=== PATIENT | female | born 1970 | race Caucasian/White ===

== ENCOUNTER → 2017-05-09 | Day surgery (SDC) | payer BC, OTHER ==
[2017-05-01 15:06] VITALS: BMI 36.0
[~2017-05-09] VITALS: Ht 180.3 cm; Wt 118.2 kg
[~2017-05-09] MED LIST: ASPI81TA28 PO; CHOL1000 PO; GARC1TAB PO; GLUCTAB7 PO; LIDOCAINE HCL 2% 2 ML VIAL (20MG/ML) ONE; MULT-506 PO; PRLSR20 PO; PROPOFOL IV EMULSION 10 MG/ML 20 ML VIAL IV ONE; RANI150T3 PO
[2017-05-09 15:07] VITALS: Ht 180.3 cm; Wt 118.2 kg
--- NOTE | 2017-05-09 16:01 | Endo History and Physical ---
History & Physical Date of Service: May 09, 2017. Chief Complaint: GERD [id number] Referring Physician: MARLO US History of Present Illness 46 yo CF who presents for EGD secondary to GERD and Esophagitis. Past Surgical History Hx Cardiac Surgery: No Hx Internal Defibrillator: No Hx Pacemaker: No Hx Abdominal Surgery: Yes (TUBAL LIGATION, UTERINE CAUTERIZATION) Hx of Implantable Prosthesis: No Hx Post-Op Nausea and Vomiting: No Hx Cancer Surgery: No Hx Thoracic Surgery: No Hx Orthopedic: No Hx Urinary Tract Surgery: No Family History Esophogeal CA Social History Smoking Status: Current Every Day Smoker Hx Substance Use: No Hx Alcohol Use: Yes (1 DRINK/DAY) Allergies Coded Allergies: Tetanus Toxoid (Verified Allergy, Unknown, HAPPENED A CHILD - UNKNOWN REACTION, 05/09/17) Current Medications Reported Home Medications Medications Dose Route/Sig Max Daily Dose Days Date Category Glucosamine Chondroitin (Kzwcvrqeomz-Kbvuapkypgc-Kub C-) 1 Tab Tab 1 Tab PO DAILY 05/01/17 Reported Garcinia Cambogia (Garcinia Cambogia-Chromium) 1 Tab Tab 1 Tab PO DAILY 05/01/17 Reported Vitamin D3 (Cholecalciferol) 1,000 Unit Tab 1 Tab PO DAILY 05/01/17 Reported Multivitamin (Multivitamins) Tab 1 Tab PO DAILY 05/01/17 Reported Aspirin Ec (Aspirin) 81 Mg Tab 81 Mg PO DAILY 05/01/17 Reported Zantac (Ranitidine HCl) 150 Mg Tab 150 Mg PO HS 05/01/17 Reported Prilosec (Omeprazole) 20 Mg Capcr 20 Mg PO QAM 05/01/17 Reported Vital Signs Weight (Kilograms): 118.18 Height (Feet): 5 Height (Inches): 11 Date Time Temp Pulse Resp B/P (MAP) Pulse Ox O2 Delivery O2 Flow Rate FiO2 05/09/17 15:17 36.8 76 18 149/78 (101) 96 Room Air Physical Exam General Appearance: WD/WN, no apparent distress Respiratory/Chest: Auscultation: breath sounds normal Cardiovascular: Heart Auscultation: RRR Abdomen: Bowel Sounds: normal Inspection & Palpation: soft, non-distended, no tenderness, guarding & rebound Assessment and Plan Assessment: 46 yo CF who presents for EGD secondary to GERD and Esophagitis. Plan: Proceed with colonoscopy.
--- NOTE | 2017-05-09 16:17 | Discharge Instructions ---
Endoscopy Patient Instructions Date / Procedure(s) Performed May 09, 2017. EGD Allergy Information Coded Allergies: Tetanus Toxoid (Verified Allergy, Unknown, HAPPENED A CHILD - UNKNOWN REACTION, 05/09/17) Discharge Date / Findings May 09, 2017. Normal EGD Medication Instructions OK to resume all medications today as prescribed Reported Home Medications Medications Dose Route/Sig Max Daily Dose Days Date Category Glucosamine Chondroitin (Jmwcrzsohbc-Tzuhrmqjyfd-Vph C-) 1 Tab Tab 1 Tab PO DAILY 05/01/17 Reported Garcinia Cambogia (Garcinia Cambogia-Chromium) 1 Tab Tab 1 Tab PO DAILY 05/01/17 Reported Vitamin D3 (Cholecalciferol) 1,000 Unit Tab 1 Tab PO DAILY 05/01/17 Reported Multivitamin (Multivitamins) Tab 1 Tab PO DAILY 05/01/17 Reported Aspirin Ec (Aspirin) 81 Mg Tab 81 Mg PO DAILY 05/01/17 Reported Zantac (Ranitidine HCl) 150 Mg Tab 150 Mg PO HS 05/01/17 Reported Prilosec (Omeprazole) 20 Mg Capcr 20 Mg PO QAM 05/01/17 Reported Provider Instructions Activity Restrictions - No exercising or heavy lifting for 24 hours. - Do not drink alcohol the day of the procedure. - Do not drive a car or operate machinery until the day after the procedure. - Do not make any important decisions or sign important papers in 24 hours after the procedure. Following Day: - Return to full activity which may include returning to work/school. Diet Start your diet with liquids and light foods (jello, soup, juice, toast). Then eat your usual diet if not nauseated. Treatment For Common After Affects For mild abdominal pain, bloating, or excessive gas: - Rest - Eat lightly - Lie on right side Follow-Up Information Follow-up with MARLO US as scheduled Anesthesia Information What You Should Know You have had a procedure that required some medicine to reduce anxiety and discomfort. This treatment is called moderate sedation. After receiving the treatment, you may be sleepy, but you will be able to breathe on your own. The effects of the treatment may last for several hours. Follow these instructions along with Activity/Diet recommendations noted above: * Do NOT do anything where dizziness or clumsiness would be dangerous. * Rest quietly at home today, then you can be up and about tomorrow. * Have a responsible person stay with you the rest of today. * You may have had an I.V. today. If so, you may take the dressing off later today. Recommendations Call your doctor if: * Trouble breathing * Continuous vomiting for more than 24 hours * Temperature above 101 degrees * Severe abdominal pain or bloating * Pain not relieved by pain medicine ordered * There is increased drainage or redness from any incision * A large amount of rectal bleeding greater than 2-3 tablespoons. (If you had a polyp/s removed or have hemorrhoids, a small amount of blood - from the rectum is to be expected.) * You have any unanswered questions or concerns. IN THE EVENT OF A SERIOUS EMERGENCY, GO TO THE NEAREST EMERGENCY ROOM Your discharge instructions were prepared by provider Malcolm Lundberg. Patient Instructions Signature Page Yenny Vargas Patient (or Guardian) Signature/Date: I have read and understand the instructions given to me by my caregivers. Caregiver/RN/Doctor Signature/Date: The above-named patient and/or guardian has received patient instructions on this date. + Original Patient Signature Page (only) stays with chart. Please make copy for patient.
--- NOTE | 2017-05-09 16:36 | Anesthesiology Progress Note ---
Anesthesia Post Op Note Date & Time May 09, 2017 at 16:36 Vital Signs Pain Intensity: 0 Vital Signs Past 12 Hours Date Time Temp Pulse Resp B/P (MAP) Pulse Ox O2 Delivery O2 Flow Rate FiO2 05/09/17 16:20 76 18 115/61 (79) 95 Room Air 05/09/17 15:17 36.8 76 18 149/78 (101) 96 Room Air Notes Mental Status: alert / awake / arousable, participated in evaluation Pt Amnestic to Procedure: Yes Nausea / Vomiting: adequately controlled Pain: adequately controlled Airway Patency, RR, SpO2: stable & adequate BP & HR: stable & adequate Hydration State: stable & adequate Anesthetic Complications: no major complications apparent
[2017-05-09 16:50] VITALS: BP 138/89; PULSE 72; O2SAT 96
--- NOTE | 2017-05-09 20:25 | GI REPORT ---
Procedure Date: 05/09/2017 3:35 PM Procedure: Upper GI endoscopy Indications: Gastro-esophageal reflux disease Medicines: Monitored Anesthesia Care Complications: No immediate complications. Estimated Blood Loss: Estimated blood loss: none. Procedure: Pre-Anesthesia Assessment: - Prior to the procedure, a History and Physical was performed, and patient medications and allergies were reviewed. The patient's tolerance of previous anesthesia was also reviewed. The risks and benefits of the procedure and the sedation options and risks were discussed with the patient. All questions were answered, and informed consent was obtained. Prior Anticoagulants: The patient has taken aspirin, last dose was 1 day prior to procedure. ASA Grade Assessment: II - A patient with mild systemic disease. After reviewing the risks and benefits, the patient was deemed in satisfactory condition to undergo the procedure. After obtaining informed consent, the endoscope was passed under direct vision. Throughout the procedure, the patient's blood pressure, pulse, and oxygen saturations were monitored continuously. The scope was introduced through the mouth, and advanced to the second part of duodenum. The upper GI endoscopy was accomplished without difficulty. The patient tolerated the procedure well. Findings: The esophagus was normal. The stomach was normal. The examined duodenum was normal. Impression: - Normal esophagus. - Normal stomach. - Normal examined duodenum. - No specimens collected. Recommendation: - Resume previous diet. - Continue present medications. - Await pathology results. - Return to primary care physician as previously scheduled. Malcolm Lundberg DO 05/09/2017 4:18:47 PM This report has been signed electronically. Note Initiated On: 05/09/2017 3:35 PM I attest to the content of the Intraoperative Record and orders documented therein, exceptions below
== END | disposition home or self-care (01) ==
LOC: C.GI 14:15
PROVIDERS: ATTEND Internal Medicine
DX: K21.9 Gastro-esophageal reflux disease without esophagitis (principal); K20.9 Esophagitis, unspecified; Z98.51 Tubal ligation status; F17.200 Nicotine dependence, unspecified, uncomplicated; Z80.0 Family history of malignant neoplasm of digestive organs; Z79.82 Long term (current) use of aspirin; Z90.89 Acquired absence of other organs; E66.9 Obesity, unspecified

== ENCOUNTER → 2017-07-31 | Outpatient (CLI) | payer OTHER ==
[~2017-07-31] MED LIST changes: -LIDOCAINE HCL 2% 2 ML VIAL (20MG/ML) ONE; -PROPOFOL IV EMULSION 10 MG/ML 20 ML VIAL IV ONE
--- NOTE | 2017-07-31 11:22 | DIAGNOSTIC IMAGING REPORT ---
CHEST 2 VIEWS ROUTINE CLINICAL HISTORY: Right sided chest pain. COMPARISON STUDY: None. FINDINGS: Lung volumes are normal. No pneumothorax or pleural effusion is noted. There is no consolidation to suggest pneumonia. There is no evidence for pulmonary edema. Cardiomediastinal silhouette is unremarkable. IMPRESSION: No acute cardiopulmonary findings. Electronically signed by: Jesús Jimenez M.D. 07/31/2017 11:20 AM Dictated Date/Time: 07/31/2017 11:19 AM
--- NOTE | 2017-07-31 12:01 | DIAGNOSTIC IMAGING REPORT ---
R EXTREMITY NONVASCULAR LIMITED CLINICAL HISTORY: D17.1 Lipoma of back thoracic [id number]. Right upper back lump. COMPARISON STUDY: None. FINDINGS: Within the right upper back at the patient's area of interest there is a 6.2 x 5.2 x 3.0 cm hypoechoic oval-shaped lesion. This demonstrates similar echogenicity within the adjacent subcutaneous fat and therefore likely represents a subcutaneous lipoma. IMPRESSION: A 6.2 x 5.2 x 3.0 cm hypoechoic lesion within the subcutaneous fat of the right upper back. This likely represents a lipoma. However, if this is increasing in size or is painful then surgical excision should be performed. Electronically signed by: Dain Brothers M.D. 07/31/2017 11:59 AM Dictated Date/Time: 07/31/2017 11:57 AM
== END | disposition home or self-care (01) ==
LOC: C.ULTR 10:50
PROVIDERS: ATTEND Nurse Practitioner Adult Health
DX: D17.1 Benign lipomatous neoplasm of skin and subcutaneous tissue of trunk (principal); R07.9 Chest pain, unspecified

== ENCOUNTER → 2017-08-21 | Outpatient (CLI) | payer OTHER ==
--- NOTE | 2017-08-22 14:01 | MAMMOGRAPHY REPORT ---
BILATERAL DIGITAL SCREENING MAMMOGRAM TOMOSYNTHESIS WITH CAD: 08/21/2017 CLINICAL HISTORY: Routine screening. Patient has no complaints. TECHNIQUE: Breast tomosynthesis in addition to standard 2D mammography was performed. Current study was also evaluated with a Computer Aided Detection (CAD) system. COMPARISON: Comparison is made to exams dated: 10/25/2015 mammogram and 05/05/2010 mammogram - [facility]. BREAST COMPOSITION: There are scattered areas of fibroglandular density in both breasts. FINDINGS: No suspicious mass, developing asymmetry, focal area of architectural distortion or cluste r of microcalcifications is seen. IMPRESSION: ACR BI-RADS CATEGORY 1: NEGATIVE There is no mammographic evidence of malignancy. A 1 year screening mammogram is recommended. The pa tient will receive written notification of the results. Approximately 10% of breast cancers are not detected with mammography. A negative mammographic report should not delay biopsy if a clinically suggestive mass is present. Anna Marie Patel M.D. ay/:08/21/2017 16:55:57 [employer] Assistant: Radha Coley RT(R)(M)(BD), [facility] letter sent: Normal 1/2 BI-RADS Code: ACR BI-RADS Category 1: Negative
== END | disposition home or self-care (01) ==
LOC: C.MAMM 15:12
PROVIDERS: ATTEND Nurse Practitioner Adult Health
DX: Z12.31 Encounter for screening mammogram for malignant neoplasm of breast (principal)

== ENCOUNTER → 2017-10-12 | Day surgery (SDC) | payer OTHER ==
[2017-10-05 15:05] VITALS: Ht 179.1 cm; Wt 120.5 kg
[~2017-10-12] VITALS: Ht 179.1 cm; Wt 120.5 kg
[~2017-10-12] MED LIST changes: +ATOR-22 PO; +ATROPINE SULFATE 0.1 MG/ML 5ML SYR IV PRN; +BACITRACIN OINT 15 GM TUBE ONE; +BUPIVACAINE 0.5 % 5 MG/1 ML MPF 30ML VIAL ONE; +CEFAZOLIN 3000MG IV PUSH 22.5 ML IV SCH; +EpHEDrine SULFATE INJ 50 MG/ML AMP IV PRN; +FENTANYL CITRATE INJ 50 MCG/1 ML 2 ML VIAL IV PRN; +FENTANYL CITRATE INJ 50 MCG/1 ML 2 ML VIAL ONE; +HYDR25TA4 PO; +HYDROCODONE/ACETAMIN 5/325MG TAB PO PRN; +LACTATED RINGER'S 1000ML 1,000 ML IV SCH; +LIDOCAINE HCL 2% 2 ML VIAL (20MG/ML) ONE; +LIDOCAINE/EPINEPHRINE 1% 20 ML VIAL ONE; +MIDAZOLAM HCL 1 MG/ML 2ML VIAL ONE; +MoRPHine SULFATE 2 MG/ML CARP IV PRN; +ONDANSETRON INJ 2 MG/ML 2 ML VIAL IV PRN; +PROPOFOL IV EMULSION 10 MG/ML 20 ML VIAL IV ONE
--- NOTE | 2017-10-12 09:11 | History & Physical Bridge - SC ---
H&P Re-Evaluation Bridge Note: I have examined the patient, reviewed the History & Physical and in the interval since the performance of the History & Physical I have noted the following changes of clinical significance: No changes noted
--- NOTE | 2017-10-12 10:01 | [facility] Post Operative Brief Note ---
Immediate Operative Summary Operative Date Oct 12, 2017. Pre-Operative Diagnosis Lipoma of back Post-Operative Diagnosis Same as pre-op Procedure(s) Performed Back Mass/Lipoma Excision Surgeon Pc Maintenance Technician Surgeon(s) Jaja Whitney Estimated Blood Loss 2ML Findings Consistent with Post-Op Diagnosis 6 cm lipoma removed in pieces. Extensions into fascia Specimens A.Back lipoma Drains None Anesthesia Type MAC Complication(s) none Disposition Accompanied Pt To Recovery: no Disposition: Recovery Room / PACU
--- NOTE | 2017-10-12 10:04 | [facility] Operative Report ---
Operative Report Operative Date Oct 12, 2017. Pre-Operative Diagnosis Lipoma of back Post-Operative Diagnosis Same as pre-op Procedure(s) Performed Back Mass/Lipoma Excision Surgeon Buffing And Polishing Wheel Repairer Surgeon(s) Jaja Whitney Estimated Blood Loss 2ML Findings 6 cm lipoma removed in pieces. Extensions into fascia Specimens A.Back lipoma Drains None Anesthesia Type MAC Complication(s) none Disposition no Recovery Room / PACU Indications 47-year-old female with symptomatic back mass, likely lipoma based on physical exam and imaging, plan for excision of soft tissue mass of back. The risks of the procedure were discussed, all questions were answered, and the patient agreed to proceed with surgery as planned. Description of Procedure The patient was properly identified, consented, and taken to the operating room where she was placed in the lateral decubitus position with the left side down. Monitored anesthesia care was induced. SCDs and a safety belt were placed. Preoperative antibiotics were administered. The patient's back was prepped and draped in the standard sterile fashion. Surgical timeout was performed and all parties were in agreement that this was the correct patient and procedure to be performed and we continued as planned. Local anesthetic was injected along the skin incision. A transverse incision was made overlying the mass and deepened down through the subcutaneous tissue with electrocautery. The lipoma was circumferentially dissected, excised in pieces, and passed off the table as specimen. It was approximately 6 cm in size and had some extensions that were deep to the fascia. The wound was irrigated and hemostasis was confirmed. The skin was closed with interrupted 3- 0 Vicryl deep dermal sutures, followed by 4-0 Monocryl running subcuticular suture. Dermabond was placed over the wound. The patient was extubated in the operating room and taken to the PACU where she recovered without apparent incident. All sponge, instrument and needle counts were correct at the conclusion of the procedure. The patient tolerated the procedure well. The physician's mailing machine assistant was present and scrubbed for the entirety of the case. He was critical in positioning the patient, prepping and draping, retraction and exposure, excision of the mass, closure of the incision, and placement of dressings. I attest to the content of the Intraoperative Record and any orders documented therein. Any exceptions are noted below.
[2017-10-12 10:16] VITALS: TEMP 36.3
--- NOTE | 2017-10-12 10:18 | Discharge Instructions ---
Discharge Instructions Date of Service Oct 12, 2017. Visit Reason for Visit: Lipoma Of Back Discharge Discharge Diagnosis / Problem: excision of lipoma Discharge Goals Goal(s): Decrease discomfort Medications Stopped Medications Name(s): Aspirin 81mg stopped Sunday10/06/17 Activity Recommendations Activity Limitations: resume your previous activity Driving or Machine Use: no limitations Anesthesia . Post Anesthesia Instructions: If you have had General Anesthesia or IV Sedation: * Do not drive today. * Resume driving when surgeon permits. * Do not make important decisions or sign legal documents today. * Call surgeon for: 1. Temperature elevations greater than 101 degrees F. 2. Uncontrollable pain. 3. Excessive bleeding. 4. Persistent nausea and vomiting. 5. Medication intolerance (nausea, vomiting or rash). * For nausea and vomiting use only clear liquids such as: tea, soda, bouillon until nausea subsides, then gradually increase diet as tolerated. * If you have any concerns or questions, call your surgeon's office. If physician is unavailable and it is an emergency, call 911 or go to the nearest emergency room. . Instructions / Follow-Up Instructions / Follow-Up Dr. Dowd in 1-2 weeks as planned or call [phone] if you do not already have an appt or have any questions You may take ibuprofen 600 mg every 6 hours as needed for pain or Tylenol OTC as directed Diet Recommendations Recommended Home Diet: no limitations Procedures Procedures Performed: Back Mass/Lipoma Excision Pending Studies Studies pending at discharge: yes List of pending studies: pathology Medical Emergencies . Who to Call and When: Medical Emergencies: If at any time you feel your situation is an emergency, please call 911 immediately. . Non-Emergent Contact Non-Emergency issues call your: Surgeon Call Non-Emergent contact if: you have a fever, temperature is above 101.5, your pain is not controlled, wound has increased redness, you have any medication questions . . "Provider Documentation" section prepared by Donnie Calabrese. .
--- NOTE | 2017-10-12 10:27 | Anesthesiology Progress Note ---
Anesthesia Post Op Note Date & Time Oct 12, 2017 at 10:26 Vital Signs Pain Intensity: 2 Vital Signs Past 12 Hours Date Time Temp Pulse Resp B/P (MAP) Pulse Ox O2 Delivery O2 Flow Rate FiO2 10/12/17 08:18 36.8 78 16 151/91 (111) 95 Room Air Notes Mental Status: alert / awake / arousable, participated in evaluation Pt Amnestic to Procedure: Yes Nausea / Vomiting: adequately controlled Pain: adequately controlled Airway Patency, RR, SpO2: stable & adequate BP & HR: stable & adequate Hydration State: stable & adequate Anesthetic Complications: no major complications apparent
[2017-10-12 10:41] VITALS: BP 150/93; PULSE 80; O2SAT 97
== END | disposition home or self-care (01) ==
LOC: X.SURG 07:59
PROVIDERS: ATTEND Surgery
DX: D17.1 Benign lipomatous neoplasm of skin and subcutaneous tissue of trunk (principal); I10 Essential (primary) hypertension; E66.9 Obesity, unspecified; Z88.7 Allergy status to serum and vaccine; E78.5 Hyperlipidemia, unspecified; K21.0 Gastro-esophageal reflux disease with esophagitis; Z87.891 Personal history of nicotine dependence; Z79.82 Long term (current) use of aspirin; Z80.1 Family history of malignant neoplasm of trachea, bronchus and lung; Z82.49 Family history of ischemic heart disease and other diseases of the circulatory system; Z83.3 Family history of diabetes mellitus; Z80.3 Family history of malignant neoplasm of breast